=== PATIENT | male | born 1945 | race Caucasian/White ===

== ENCOUNTER 2020-11-27 20:28 | Emergency (ER) | payer BC, OTHER ==
[~2020-11-27] VITALS: Ht 182.9 cm; Wt 99.8 kg
[2020-11-27 20:30] VITALS: BP_SYST 137
[2020-11-27] MEDS: DIPH-TET-PERTUS Vaccine 0.5 ML VIAL (ADACEL) I.M. ONE (20:58)
[2020-11-27] MEDS: cephALEXin 500 MG CAPSULE PO ONE (21:00)
[2020-11-27] MEDS: LIDOCAINE 2%, 20 ML MDV INJ ONE (21:15)
[2020-11-27 21:24] VITALS: BP_SYST 137
== END 2020-11-27 21:26 | disposition home or self-care (01) ==
LOC: SED 20:28
DX: S61.411A Laceration without foreign body of right hand, initial encounter (principal); W26.8XXA Contact with other sharp object(s), not elsewhere classified, initial encounter; Y93.89 Activity, other specified; Y92.89 Other specified places as the place of occurrence of the external cause; Y99.8 Other external cause status
CPT/HCPCS: 12002; 90471; 90715; 99283; J2001

== ENCOUNTER 2021-05-01 14:52 | Emergency (ER) | payer BC, OTHER ==
[~2021-05-01] VITALS: Ht 190.5 cm; Wt 98.4 kg
[2021-05-01 15:05] VITALS: BP_SYST 111
[2021-05-01] MEDS ORDERED: NACL 0.9% 1,000 ML IV ONE (15:30)
[2021-05-01 15:48] LABS: BILIRUBIN,URINE NEGATIVE (NEGATIVE); BLOOD, URINE NEGATIVE (NEGATIVE); COLOR,URINE YELLOW (YELLOW); GLUCOSE,URINE NEGATIVE (NEGATIVE); KETONES,URINE NEGATIVE (NEGATIVE); LEUKOCYTE ESTERASE ,URINE NEGATIVE (NEGATIVE); NITRITE, URINE NEGATIVE (NEGATIVE); PROTEIN URINE NEGATIVE (NEGATIVE); UROBILINOGEN,URINE 0.2 (0.2-1.0)
[2021-05-01 15:59] LABS: BASOPHILS # (AUTO) 0.1 K/uL (0.0-0.2); BASOPHILS % (AUTO) 0.8 % (0.0-2.0); EOSINOPHILS # (AUTO) 0.2 K/uL (0.0-0.4); EOSINOPHILS % (AUTO) 2.2 % (0.0-4.0); HEMATOCRIT 44.2 % (36-54); HEMOGLOBIN 15.4 g/dL (14.0-18.0); LYMPHOCYTES # (AUTO) 1.9 K/uL (1.0-5.5); LYMPHOCYTES % (AUTO) 25.3 % (20.5-51.5); MEAN CORPUSCULAR HEMOGLOBIN 31 pg (27-31); MEAN CORPUSCULAR HGB CONC 35 % (32-36); MEAN CORPUSCULAR VOLUME 89 fL (79.0-98.0); MONOCYTES # (AUTO) 0.7 K/uL (0.0-1.0); MONOCYTES % (AUTO) 8.9 % (1.7-9.3); NEUTROPHILS # (AUTO) 4.7 K/uL (1.8-7.7); NEUTROPHILS % (AUTO) 62.8 % (40.0-70.0); PLATELET COUNT (AUTO) 267 K/uL (130-430); RED BLOOD CELL COUNT(AUTO) 4.97 MIL/uL (4.2-6.2); WHITE BLOOD COUNT (AUTO) 7.5 K/uL (4.8-10.8)
[2021-05-01 16:11] LABS: ANION GAP 10 (5-15); CHLORIDE 103 mmol/L (98-107); CREATININE 1.08 mg/dL (0.55-1.30); GLUCOSE 115 mg/dL (70-99); POTASSIUM 3.7 mmol/L (3.5-5.1); SODIUM SERUM 139 mmol/L (136-145); UREA NITROGEN, BLOOD 13 mg/dL (8-21)
[2021-05-01 16:17] LABS: CLARITY/URINE SLIGHTLY HAZY (CLEAR)
[2021-05-01 16:17] LABS: ALANINE AMINOTRANSFERASE 36 U/L (12-78); ASPARTATE AMINOTRANSFERASE 23 U/L (10-37); LIPASE 48 U/L (73-393); TOTAL BILIRUBIN 0.7 mg/dL (0.0-1.0)
[2021-05-01 16:25] LABS: ALBUMIN 3.6 g/dL (3.4-4.8)
[2021-05-01] MEDS ORDERED: POLY17PO4 PO (17:04)
[2021-05-01] MEDS ORDERED: SENN8.6T19 PO (17:04)
[2021-05-01 17:46] VITALS: BP_SYST 116
== END 2021-05-01 17:24 | disposition home or self-care (01) ==
LOC: SED 14:52
DX: N28.1 Cyst of kidney, acquired (principal); K59.00 Constipation, unspecified; K76.89 Other specified diseases of liver; N40.0 Benign prostatic hyperplasia without lower urinary tract symptoms; Z79.899 Other long term (current) drug therapy; Z20.822 Contact with and (suspected) exposure to COVID-19
CPT/HCPCS: 36415; 74176; 76376; 80053; 81003; 83690; 85025; 87426; 96360; 99284; J7030

== ENCOUNTER 2023-08-04 11:04 | Emergency (ER) | payer BC, OTHER ==
[~2023-08-04] VITALS: Ht 190.5 cm; Wt 95.3 kg
[~2023-08-04 11:04] MED LIST: POLY17PO4 PO; SENN8.6T19 PO
[2023-08-04 11:05] VITALS: BP_SYST 130; PULSE 76; RESP 18; TEMP 97.7; O2SAT 97
[2023-08-04] MEDS ORDERED: AMOX-423 PO (13:29)
== END 2023-08-04 13:36 | disposition home or self-care (01) ==
LOC: SED 11:04
DX: S01.512A Laceration without foreign body of oral cavity, initial encounter (principal); S01.81XA Laceration without foreign body of other part of head, initial encounter; S50.312A Abrasion of left elbow, initial encounter; I10 Essential (primary) hypertension; Z79.899 Other long term (current) drug therapy; W10.9XXA Fall (on) (from) unspecified stairs and steps, initial encounter; Y93.89 Activity, other specified; Y92.89 Other specified places as the place of occurrence of the external cause; Y99.8 Other external cause status
CPT/HCPCS: 70450-TC; 76376; 93005; 99284